=== PATIENT | female | born 1945 | race African-American/Black ===

== ENCOUNTER 2018-06-25 15:52 | Inpatient (IN) | payer MEDICARE, OTHER ==
[~2018-06-25] VITALS: Ht 165.1 cm; Wt 95.7 kg
--- NOTE | 2018-06-25 15:52 | NUR ---
PT [facility]AM[facility]X HANNA [facility] BILATERAL LEG CELLULITIS, PT IS AAOX4, NOT IN RESPIRATORY DISTRESS, HOOKED TO MONITOR, VS STABLE, KEPT RESTED AND COMFORTABLE, WILL CONTINUE TO MONITOR.
--- NOTE | 2018-06-25 16:06 | NUR ---
CALLED NURSE SUP FOR MED SURG BED
--- NOTE | 2018-06-25 16:20 | NUR ---
SEEN AND EXAMINED BY CHARLI LOWE
--- NOTE | 2018-06-25 16:26 | NUR ---
IV LINE ESTABLISHED, LABS DRAWNED AND SENT TO LAB.
[2018-06-25] MEDS ORDERED: ONDANSETRON HCL/PF 4 MG/2 ML VIAL ONE (16:29)
[2018-06-25] MEDS ORDERED: MORPHINE SULFATE INJ 4 MG/ML DISP.SYRIN ONE (16:30)
[2018-06-25] MEDS ORDERED: ONDANSETRON HCL/PF 4 MG/2 ML VIAL IVP ONE (16:30)
[2018-06-25] MEDS ORDERED: MORPHINE SULFATE INJ 2 MG/ML DISP.SYRIN IV ONE (16:30)
[2018-06-25 16:34] LABS: BASOPHILS # (AUTO) 0.1 /CMM (0.0-0.2); BASOPHILS % (AUTO) 1.2 % (0.0-2.0); EOSINOPHILS % (AUTO) 8.9 % (0.0-6.0); HEMATOCRIT 29 % (33-45); LYMPHOCYTES # (AUTO) 1.5 /CMM (0.8-4.8); LYMPHOCYTES % (AUTO) 21.4 % (20.0-44.0); MEAN CORPUSCULAR HGB CONC 31 g/dl (31.0-36.0); MEAN CORPUSCULAR VOLUME 83 fL (82-100); MONOCYTES # (AUTO) 0.6 /CMM (0.1-1.30); MONOCYTES % (AUTO) 8.5 % (2.0-12.0); NEUTROPHILS # (AUTO) 4.1 /CMM (1.8-8.9); PLATELET COUNT (AUTO) 425 /CMM (150-450); WHITE BLOOD COUNT (AUTO) 6.8 K/uL (4.3-11.0)
[2018-06-25 16:44] LABS: CALCIUM, SERUM 12.6 mg/dL (8.5-10.1); CARBON DIOXIDE 25 mmol/L (21-32); CHLORIDE 107 mmol/L (98-107); CREATININE 2.2 mg/dL (0.6-1.3); GLUCOSE 111 mg/dL (74-106); POTASSIUM 4.6 mmol/L (3.5-5.1); SODIUM SERUM 139 mmol/L (136-145); UREA NITROGEN, BLOOD 39 mg/dL (7-18)
[2018-06-25 16:51] LABS: ALANINE AMINOTRANSFERASE 12 U/L (12-78); ALBUMIN 2.2 g/dL (3.4-5.0); ALKALINE PHOSPHATASE 87 U/L (46-116); ASPARTATE AMINOTRANSFERASE 11 U/L (15-37); BILIRUBIN,DIRECT 0.1 mg/dL (0.0-0.2); BILIRUBIN,TOTAL 0.2 mg/dL (0.2-1.0); TOTAL PROTEIN, SERUM 8.2 g/dL (6.4-8.2)
[2018-06-25] MEDS ORDERED: LATA7.5D EACHEYE (17:43)
[2018-06-25] MEDS ORDERED: MAGN400O6 PO (17:43)
[2018-06-25] MEDS ORDERED: ASPI-1169 PO (17:43)
[2018-06-25] MEDS ORDERED: AMLO10TA7 PO (17:43)
[2018-06-25] MEDS ORDERED: ZINC220T PO (17:43)
[2018-06-25] MEDS ORDERED: HYDR-4384 PO ×2 (17:43)
[2018-06-25] MEDS ORDERED: SIMV10TA6 PO (17:43)
[2018-06-25] MEDS ORDERED: CARV3.12 PO (17:43)
[2018-06-25] MEDS ORDERED: ASCO-340 PO (17:43)
[2018-06-25] MEDS ORDERED: FERR325T23 PO (17:43)
[2018-06-25] MEDS ORDERED: AMIN30LI27 PO (17:43)
[2018-06-25] MEDS ORDERED: MIRT15TA7 PO (17:43)
[2018-06-25] MEDS ORDERED: BRIM5DRO3 EACHEYE (17:43)
[2018-06-25] MEDS ORDERED: ACET325T53 PO (17:43)
[2018-06-25] MEDS ORDERED: BISA10SU61 RC (17:43)
[2018-06-25] MEDS ORDERED: DORZ10DR EACHEYE (17:43)
[2018-06-25] MEDS ORDERED: NA P133E RC (17:43)
--- NOTE | 2018-06-25 17:46 | NUR ---
TALKED TO TAMEKA PERFORMING ARTS ROAD MANAGER.
[2018-06-25 18:14] LABS: APPEARANCE,URINE Cloudy (CLEAR); BILIRUBIN,URINE Negative (NEGATIVE); BLOOD, URINE Moderate Ery/uL (NEGATIVE); COLOR,URINE Yellow (YELLOW); KETONES,URINE Trace (NEGATIVE); LEUKOCYTE ESTERASE ,URINE Large (NEGATIVE); NITRITE, URINE Negative (NEGATIVE); PH,URINE 5.5 (5.0-8.0); PROTEIN,URINE 100 mg/dl (NEGATIVE); UGLUCOSE Negative (NEGATIVE); UROBILINOGEN,URINE 0.2 EU/dL (0.2)
--- NOTE | 2018-06-25 18:16 | NUR ---
CALLED NURSE SUP; ADV DR PARSONS REQUESTING TELE BED FOR 8; NURSE SUP STATED PT CAN STILL GO TO BED 103
[2018-06-25] MEDS ORDERED: VANCOMYCIN 1 GM in IV D5W 250 ML IV ONE (18:30)
[2018-06-25] MEDS ORDERED: PIPERACILLIN /TAZOBACTAM 3.375 G in IV D5W 50 ML IV ONE (18:30)
--- NOTE | 2018-06-25 18:52 | NUR ---
RN NOTE RECEIVED REPORT FROM ESMER SANTOYO.
[2018-06-25] MEDS ORDERED: FEE PK DOSING 1 MIN EA MC ONE (18:54)
[2018-06-25] MEDS ORDERED: ACETAMINOPHEN 325 MG TABLET PO PRN (19:00)
[2018-06-25] MEDS ORDERED: ONDANSETRON HCL/PF 4 MG/2 ML VIAL IVP PRN (19:00)
[2018-06-25] MEDS ORDERED: BISACODYL SUPP (10 MG) 10 MG/SUPP.RECT SUPP.RECT RC PRN (19:00)
[2018-06-25] MEDS ORDERED: MAG HYDROX/AL HYDROX/SIMETH 30 ML UDC PO PRN (19:00)
[2018-06-25] MEDS ORDERED: MAGNESIUM HYDROXIDE 30 ML UDC PO PRN ×2 (19:00)
--- NOTE | 2018-06-25 19:30 | NUR ---
ADMINISTRATION INTERNSHIPDIRECTOR OF SPECIAL SERVICES NOTE: PT ADMITTED FROM ER [facility]IA [facility] WITH ADMITTING DIAGNOSIS OF BLE WOUND WITH CELLULITIS. PT IS ALERT AND ORIENTED X3, VERBALLY RESPONSIVE. NO ACUTE DISTRESS NOTED. COMPLAINED OF BLE PAIN 8/10. ON ROOM AIR, NO SOB NOTED. SATURTAING WELL. ON TELE MONITOR SINUS RHYTHM HR 75BPM. PT HAS AN IV ON LEFT ANTECUBITAL #20 INTACT AND PATENT, FLUSHING WELL. NO SIGNS/SYMPTOMS OF INFILTRATION NOTED. PERTINENT ASSESSMENTS DONE. MULTIPLE SKIN ISSUES NOTED. PICTURES TAKEN AND PLACED ON CHART. CALL LIGHT PLACED WITHIN REACH. KEPT CLEAN, DRY AND COMFORTABLE. SAFETY AND FALL PRECAUTIONS OBSERVED AND MAINTAINED. WILL CONTINUE TO MONITOR PT.
[2018-06-25 20:00] VITALS: BP 103/69
[2018-06-25] MEDS: BRIMONIDINE TARTRATE OPHT SOLN 5 ML BOTTLE OP SCH (20:18)
[2018-06-25] MEDS: PROSTAT (PYXIS) 30 ML UDC PO SCH (20:19)
[2018-06-25] MEDS: LATANOPROST EYE DROP 0.005% 2.5 ML BOTTLE EACHEYE SCH (21:42)
[2018-06-25] MEDS: IV NS 0.9% 1,000 ML IV PRN (21:42)
[2018-06-25] MEDS: MIRTAZAPINE 15 MG TABLET PO SCH (21:47)
[2018-06-25] MEDS: HYDROCODONE/APAP 5/325MG 1 EACH TABLET PO PRN (21:47)
[2018-06-25] MEDS: SIMVASTATIN 10 MG TABLET PO SCH (21:47)
[2018-06-25 22:40] VITALS: BP 103/69
[2018-06-25] MEDS: CEFTRIAXONE 1 G in IV D5W 50 ML IV SCH (23:28)
[2018-06-26] VITALS (8 sets, daily range): BP systolic 102–133; BP diastolic 52–81
[2018-06-26 02:36] LABS: BACTERIA,URINE Many /HPF (None Seen); SQUAMOUS EPITHELIAL CELL,UR Few /HPF (None Seen); WBC,URINE 51-80 /HPF (0-3)
[2018-06-26] MEDS: BRIMONIDINE TARTRATE OPHT SOLN 5 ML BOTTLE OP SCH ×3 (04:10→20:50)
[2018-06-26 06:21] LABS: ALANINE AMINOTRANSFERASE 10 U/L (12-78); ALBUMIN 2.1 g/dL (3.4-5.0); ALKALINE PHOSPHATASE 87 U/L (46-116); ASPARTATE AMINOTRANSFERASE 11 U/L (15-37); BILIRUBIN,TOTAL 0.2 mg/dL (0.2-1.0); CARBON DIOXIDE 24 mmol/L (21-32); CHLORIDE 108 mmol/L (98-107); CREATININE 2.1 mg/dL (0.6-1.3); GLUCOSE 89 mg/dL (74-106); MAGNESIUM 1.9 mg/dL (1.8-2.4); PHOSPHORUS 2.6 mg/dL (2.5-4.9); POTASSIUM 4.6 mmol/L (3.5-5.1); SODIUM SERUM 141 mmol/L (136-145); TOTAL PROTEIN, SERUM 7.6 g/dL (6.4-8.2); UREA NITROGEN, BLOOD 40 mg/dL (7-18)
[2018-06-26 06:23] LABS: CHOLESTEROL 155 mg/dL (<200); HDL CHOLESTEROL 37 mg/dL (40-60); LDL 95 mg/dL (0-99); TRIGLYCERIDES 111 mg/dL (30-150)
[2018-06-26 06:27] LABS: BASOPHILS # (AUTO) 0.1 /CMM (0.0-0.2); BASOPHILS % (AUTO) 0.8 % (0.0-2.0); EOSINOPHILS % (AUTO) 9.7 % (0.0-6.0); HEMATOCRIT 26 % (33-45); HEMOGLOBIN 8.1 g/dL (11.5-14.8); LYMPHOCYTES # (AUTO) 1.6 /CMM (0.8-4.8); LYMPHOCYTES % (AUTO) 24.4 % (20.0-44.0); MEAN CORPUSCULAR HGB CONC 32 g/dl (31.0-36.0); MEAN CORPUSCULAR VOLUME 82 fL (82-100); MONOCYTES # (AUTO) 0.6 /CMM (0.1-1.30); MONOCYTES % (AUTO) 9.9 % (2.0-12.0); NEUTROPHILS # (AUTO) 3.6 /CMM (1.8-8.9); NEUTROPHILS % (AUTO) 55.2 % (43.0-81.0); PLATELET COUNT (AUTO) 392 /CMM (150-450); RED BLOOD CELL COUNT(AUTO) 3.14 MIL/uL (4.0-5.2); WHITE BLOOD COUNT (AUTO) 6.5 K/uL (4.3-11.0)
--- NOTE | 2018-06-26 06:35 | NUR ---
FILTER PLANT OPERATOR NOTE: NO CHANGES NOTED THROUGHOUT THE SHIFT. NO APPARENT DISTRESS NOTED. NO COMPLAINTS OF PAIN OR DISCOMFORT NOTED. ON ROOM AIR, BREATHING EVEN AND UNLABORED WITH NORMAL RESPIRATIONS. ON TELE MONITOR SINUS RHYTHM HR 76BPM. IV ON LEFT ANTECUBITAL #20 INTACT AND PATENT, IVF INFUSING WELL. KEPT CLEAN, DRY AND COMFORTABLE. SAFETY AND FALL PRECAUTIONS OBSERVED AND MAINTAINED. WILL ENDORSE TO DAY SHIFT RN FOR CONTINUITY OF CARE
[2018-06-26] MEDS ORDERED: ANESTHESIA TRAY IN PYXIS 1 EA TRAY MC ONE (06:53)
[2018-06-26] MEDS ORDERED: LIDOCAINE HCL/PF 1% 30 ML SDV ONE (06:53)
[2018-06-26] MEDS ORDERED: BUPIVACAINE 0.5 % PF 150 MG/30 ML VIAL ONE (06:53)
--- NOTE | 2018-06-26 07:31 | NUR ---
JAVA WEB ENGINEER OPENING RECEIVED REPORT FROM SIMBA RN. PT. IN OR AT THIS TIME
--- NOTE | 2018-06-26 07:36 | NUR ---
MAINTENANCE DATA ANALYST OPENING NOTES RECEIVED REPORT FROM NOC RN PATIENT IN OR FOR DEBRIDEMENT @ THIS TIME
--- NOTE | 2018-06-26 08:53 | NUR ---
RECEIVED POST DEBRIDEMENT CALL FROM KEISHA WEINBERG RN
[2018-06-26] MEDS: PROSTAT (PYXIS) 30 ML UDC PO SCH ×2 (09:00→17:00)
[2018-06-26] MEDS: DORZOLAMIDE OPTH 2% 10 ML BOTTLE EACHEYE SCH ×3 (09:00→18:22)
[2018-06-26] MEDS: AMLODIPINE BESYLATE 10 MG TABLET PO SCH (09:00)
[2018-06-26] MEDS: ZINC SULFATE 220 MG CAPSULE PO SCH (09:00)
[2018-06-26] MEDS: CARVEDILOL 3.125 MG TABLET PO SCH ×2 (09:00→18:21)
[2018-06-26] MEDS: ASPIRIN 81 MG TAB.CHEW PO SCH (09:00)
[2018-06-26] MEDS: FERROUS SULFATE (325 MG) 325 MG/TAB TABLET PO SCH (09:00)
--- NOTE | 2018-06-26 09:20 | NUR ---
PT. ARRIVED FROM OR. DROWSY BUT ABLE TO AROUSE. FOLLOWS COMMANDS. TEMP 97.9F, TELE ATTACHED SINUS RHYTHM HR 71, 102/77, SPO2 100% ON ROOM AIR, RR 16. ORDERS RECEIVED AND CARRIED OUT. WILL CONTINUE TO MONITOR
--- NOTE | 2018-06-26 10:54 | NUR ---
INFORMATION TECHNOLOGY TECHNICIAN NOTES ROUNDING DONE WITH DR DUMONT PATIENT [facility] STAY X1 MORE NIGHT FOR OBSERVATION
[2018-06-26] MEDS: IV NS 0.9% 1,000 ML IV PRN (14:39)
[2018-06-26] MEDS: Z GUARD REMEDY 2 OZ OINT TP PRN (16:31)
[2018-06-26] MEDS ORDERED: VANCOMYCIN 0.75 GM in IV D5W 250 ML IV SCH (18:00)
[2018-06-26] MEDS: NYSTATIN TOP POWDER 15 GM BOTTLE TP SCH ×3 (18:20→21:14)
[2018-06-26] MEDS: HYDROCODONE/APAP 5/325MG 1 EACH TABLET PO PRN ×2 (18:21→23:19)
--- NOTE | 2018-06-26 19:51 | NUR ---
ESMER MS INITIAL NOTE: PT IS ALERT AND ORIENTED X3, VERBALLY RESPONSIVE. NO ACUTE DISTRESS NOTED. DENIES ANY PAIN, ON R/A SATURATING WELL. PT HAS AN IV ON LEFT ANTECUBITAL #20 INTACT AND PATENT, FLUSHING WELL. NO SIGNS/SYMPTOMS OF INFILTRATION NOTED. PERTINENT ASSESSMENTS DONE. MULTIPLE SKIN ISSUES NOTED, SCHEDULED FOR DEBRIDEMENT IN AM, CONSENT IN CHART. CALL LIGHT PLACED WITHIN REACH. KEPT CLEAN, DRY AND COMFORTABLE. Addendum: 06/26/18 at 2006 by LISSY TATUM RN S/P WOUND DEBRIDEMENT, NO COMPLICATIONS NOTED, OR BLEEDING, VS STABLE, AFEBRILE.
[2018-06-26] MEDS: NYSTATIN/TRIAMCIN CREAM 15 GM TUBE TP SCH (20:00)
[2018-06-26] MEDS: LATANOPROST EYE DROP 0.005% 2.5 ML BOTTLE EACHEYE SCH (21:03)
[2018-06-26] MEDS: SIMVASTATIN 10 MG TABLET PO SCH (21:04)
[2018-06-26] MEDS: MIRTAZAPINE 15 MG TABLET PO SCH (21:04)
--- NOTE | 2018-06-26 21:16 | NUR ---
NYSTATIN OINT' TUBE NOT IN CASET.
[2018-06-26] MEDS: CEFTRIAXONE 1 G in IV D5W 50 ML IV SCH (23:03)
[2018-06-26] MEDS: ZOLPIDEM TARTRATE 5 MG TABLET PO PRN (23:20)
[2018-06-27] VITALS: BP 126/71
[2018-06-27 04:00] VITALS: BP 116/53
[2018-06-27] MEDS: BRIMONIDINE TARTRATE OPHT SOLN 5 ML BOTTLE OP SCH ×3 (04:30→19:23)
[2018-06-27] MEDS: IV NS 0.9% 1,000 ML IV PRN ×2 (04:31→19:22)
--- NOTE | 2018-06-27 06:14 | NUR ---
CLOTH WIRE WEAVER CLOSING NOTE: PT IS ALERT AND ORIENTED X3, VERBALLY RESPONSIVE. NO ACUTE DISTRESS NOTED. DENIES ANY PAIN, ON R/A SATURATING WELL. PT HAS AN IV ON LEFT ANTECUBITAL #20 INTACT AND PATENT, FLUSHING WELL. NO SIGNS/SYMPTOMS OF INFILTRATION NOTED. PERTINENT , S/P DEBRIDEMENT , CALL LIGHT PLACED WITHIN REACH. KEPT CLEAN, DRY AND COMFORTABLE.
[2018-06-27 06:28] LABS: BASOPHILS % (AUTO) 0.7 % (0.0-2.0); EOSINOPHILS % (AUTO) 8.9 % (0.0-6.0); HEMATOCRIT 25 % (33-45); LYMPHOCYTES # (AUTO) 2.2 /CMM (0.8-4.8); LYMPHOCYTES % (AUTO) 33.3 % (20.0-44.0); MEAN CORPUSCULAR HGB CONC 32 g/dl (31.0-36.0); MEAN CORPUSCULAR VOLUME 82 fL (82-100); MONOCYTES # (AUTO) 0.8 /CMM (0.1-1.30); MONOCYTES % (AUTO) 11.8 % (2.0-12.0); NEUTROPHILS % (AUTO) 45.3 % (43.0-81.0); PLATELET COUNT (AUTO) 308 /CMM (150-450); RED BLOOD CELL COUNT(AUTO) 3.03 MIL/uL (4.0-5.2); WHITE BLOOD COUNT (AUTO) 6.5 K/uL (4.3-11.0)
[2018-06-27 06:54] LABS: ALANINE AMINOTRANSFERASE 8 U/L (12-78); ALBUMIN 1.8 g/dL (3.4-5.0); ALKALINE PHOSPHATASE 74 U/L (46-116); ASPARTATE AMINOTRANSFERASE 14 U/L (15-37); BILIRUBIN,TOTAL 0.1 mg/dL (0.2-1.0); CALCIUM, SERUM 10.8 mg/dL (8.5-10.1); CARBON DIOXIDE 23 mmol/L (21-32); CHLORIDE 111 mmol/L (98-107); CREATININE 1.5 mg/dL (0.6-1.3); GLUCOSE 82 mg/dL (74-106); MAGNESIUM 1.9 mg/dL (1.8-2.4); PHOSPHORUS 2.3 mg/dL (2.5-4.9); POTASSIUM 4.6 mmol/L (3.5-5.1); SODIUM SERUM 142 mmol/L (136-145); TOTAL PROTEIN, SERUM 6.8 g/dL (6.4-8.2); UREA NITROGEN, BLOOD 31 mg/dL (7-18)
[2018-06-27 06:55] LABS: IRON, SERUM 16 ug/dl (50-175); TOTAL IRON BINDING CAPACITY 109 ug/dl (250-450)
--- NOTE | 2018-06-27 07:30 | NUR ---
RN NOTES RECEIVED PATIENT IN BED, AWAKE, ALERT AND ORIENTED X3, ABLE TO RESPOND APPROPRIATELY. NOT ON ANY FORM OF DISTRESS. N ROOM AIR, NO SOB NOTED. WITH COMPLAINTS OF PAIN ON THE LLE PAIN 10/10. SINUS RHYTHM ON THE MONITOR, HR ON THE 70 BPM. IV ACCESS ON LEFT ANTECUBITAL #20 INTACT AND PATENT, FLUSHING WELL. NO SIGNS/SYMPTOMS OF INFILTRATION NOTED.WITH ONGOING UV OF NS AT 75CC/HR. SAFETY MEASURES OBSERVED AND MAINTAINED. ENCOURAGED TO CALL FOR HELP AND ASSISTANCE. CALL LIGHT PLACED WITHIN REACH. WILL CONTINUE TO MONITOR PATIENT.
[2018-06-27 08:00] VITALS: BP 122/69
[2018-06-27] MEDS: NYSTATIN/TRIAMCIN CREAM 15 GM TUBE TP SCH ×2 (08:17→20:27)
[2018-06-27] MEDS: ASPIRIN 81 MG TAB.CHEW PO SCH (08:17)
[2018-06-27] MEDS: CARVEDILOL 3.125 MG TABLET PO SCH ×2 (08:18→17:27)
[2018-06-27] MEDS: AMLODIPINE BESYLATE 10 MG TABLET PO SCH (08:18)
[2018-06-27] MEDS: FERROUS SULFATE (325 MG) 325 MG/TAB TABLET PO SCH (08:18)
[2018-06-27] MEDS: PROSTAT (PYXIS) 30 ML UDC PO SCH ×2 (08:27→17:33)
[2018-06-27] MEDS: ZINC SULFATE 220 MG CAPSULE PO SCH (08:27)
[2018-06-27] MEDS: DORZOLAMIDE OPTH 2% 10 ML BOTTLE EACHEYE SCH ×3 (08:28→17:26)
[2018-06-27 08:29] LABS: EOSINOPHILS % (MANUAL) 7 % (0-4); LYMPHOCYTES % (MANUAL) 43 % (16-48); MONOCYTES % (MANUAL) 7 % (0-11.0); NEUTROPHILS % (MANUAL) 43 (42-76)
[2018-06-27] MEDS: HYDROCODONE/APAP 5/325MG 1 EACH TABLET PO PRN ×3 (08:29→21:43)
--- NOTE | 2018-06-27 08:41 | NUR ---
WOUND CARE CONSULT WOUND CARE RECEIVED CONSULT FOR BLE WOUNDS. WOUND CARE WILL DEFER CONSULT AND TREATMENT PLANS TO PLASTIC SURGICAL TEAM WELL DPM DR DILLARD WHO ARE ALL FOLLOWING THIS PATIENT. PATIENT WITH JOSUE AT 12, ALL PRESSURE ULCER PREVENTION MEASURES ARE NOTED TO BE IN PLACE AT THIS TIME. WILL SEE PRN.
--- NOTE | 2018-06-27 08:54 | NUR ---
WOUND CARE CONSULT: PT FOLLOWED BY PLASTIC SURGERY AND PODIATRY TEAM. DEFER TO SURGICAL TEAMS FOR WOUND TREATMENT PLAN. RECOMMEND FIRST STEP LOW AIRLOSS MATTRESS FOR CURRENT JOSUE SCORE OF 12. DISCUSSED WITH NURSING STAFF AND FOREST TECHNOLOGY PROFESSOR. IN AGREEMENT WITH PLAN OF CARE.
[2018-06-27 09:18] LABS: CREATINE KINASE, TOTAL 70 U/L (26-192); FERRITIN 147 ng/mL (8-388)
[2018-06-27 12:00] VITALS: BP 129/63
[2018-06-27] MEDS ORDERED: K PHOS NEUTRAL 250 MG TABLET PO ONE (12:00)
[2018-06-27 16:00] VITALS: BP 121/63
[2018-06-27] MEDS: LACTOBACILLUS RHAMNOSUS GG 1 EACH CAP.SPRINK PO SCH (17:28)
--- NOTE | 2018-06-27 17:30 | NUR ---
RN NOTES ENDORSED PATIENT FOR CONTINUITY OF CARE. NO ACUTE CHANGES WITHIN THE SHIFT. NOT ON ANY FORM OF DISTRESS. ALL NURSING NEEDS ATTENDED AND MET. SAFETY MEASURES IN PLACE AT ALL TIMES. CALL LIGHT WITHIN REACH
--- NOTE | 2018-06-27 19:20 | NUR ---
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 Addendum: 06/27/18 at 7 by SADIE LACY RN MAKE CORRECTION: GAUGE #2O IV CANNULA ON LAC.
[2018-06-27 20:00] VITALS: BP 130/68
[2018-06-27] MEDS: VANCOMYCIN 1 GM in IV D5W 250 ML IV SCH (20:18)
[2018-06-27] MEDS: LATANOPROST EYE DROP 0.005% 2.5 ML BOTTLE EACHEYE SCH (21:28)
[2018-06-27] MEDS: MUPIROCIN OINT 2% 22 GM TUBE SCH (21:28)
[2018-06-27] MEDS: MIRTAZAPINE 15 MG TABLET PO SCH (21:28)
[2018-06-27] MEDS: SIMVASTATIN 10 MG TABLET PO SCH (21:28)
--- NOTE | 2018-06-27 21:44 | NUR ---
RN NOTES: TURNING AND REPOSITIONING DONE, AFTER THAT SHE COMPLAINED OF PAIN GENERALIZED 09/03, REQUEST FOR PRN PAIN MEDICATION, GIVEN, NON PHARMACOLOGIC INTERVENTION RENDERED.DIM LIGHT AND WARM BLANKET GIVEN.CALL LIGHT KEPT WITHIN EASY REACH.
[2018-06-27] MEDS: CEFTRIAXONE 1 G in IV D5W 50 ML IV SCH (22:06)
[2018-06-28] VITALS: BP 125/65
[2018-06-28] MEDS: HYDROCODONE/APAP 5/325MG 1 EACH TABLET PO PRN ×4 (01:44→21:09)
--- NOTE | 2018-06-28 01:45 | NUR ---
RN NOTES: TURN AND REPOSITIONED, COMPLAINED OF BLE PAIN 09/03, REQUEST FOR PAIN MEDICATION AFTER SHE HAD HER SNACKS,NON PHARMACOLOGIC INTERVENTION RENDERED.
[2018-06-28] MEDS: BRIMONIDINE TARTRATE OPHT SOLN 5 ML BOTTLE OP SCH ×3 (02:51→18:12)
[2018-06-28] MEDS: ACETAMINOPHEN 325 MG TABLET PO PRN (02:59)
--- NOTE | 2018-06-28 03:00 | NUR ---
RN NOTES: ABLE TO SLEEP AT SHORT INTERVALS, UPON AWAKENING SHE REQUEST FOR HER TYLENOL, EXPLAINED TO SHE JUST RECEIVED HER NORCO AT 0144, SHE SAID 'IM STILL IN PAIN,CAN YOU PLEASE GIVE ME TYLENOL", GIVEN PER PATIENT REQUEST, NON PHARMACOLOGIC INTERVENTION RENDERED. CALL LIGHT KEPT WITHIN EASY REACH.
[2018-06-28] MEDS: NYSTATIN TOP POWDER 15 GM BOTTLE TP SCH ×2 (05:21→17:08)
--- NOTE | 2018-06-28 06:30 | NUR ---
RN NOTES: ABLE TO SLEEP AND REST, MORNING CARE DONE,IVF ONGOING, BLE OFF LOADING,NO SIGN OF SOB OR RESPIRATORY DISCOMFORT,KEPT ON CLOSE WATCH, BLOOD TEST DONE,FOR PAIN MANAGEMENT,ENDORSED FOR CONTINUITY OF CARE.
[2018-06-28 07:31] LABS: CALCIUM, SERUM 10.5 mg/dL (8.5-10.1); CARBON DIOXIDE 22 mmol/L (21-32); CHLORIDE 111 mmol/L (98-107); CREATININE 1.1 mg/dL (0.6-1.3); GLUCOSE 91 mg/dL (74-106); PHOSPHORUS 2.5 mg/dL (2.5-4.9); SODIUM SERUM 141 mmol/L (136-145); UREA NITROGEN, BLOOD 24 mg/dL (7-18)
--- NOTE | 2018-06-28 07:31 | NUR ---
MS RN OPENING NOTES RECEIVED PT LAYING IN BED WITH HOB SLIGHTLY ELEVATED. PT IS A/O X3, AFEBRILE. RESPIRATIONS ARE EVEN AND UNLABORED, NOT IN ANY ACUTE DISTRESS NOTED.C/O GENERALIZED PAIN W/ PL 10/04. WILL MEDICATE ACCORDINGLY. DENIES ANY SOB, N/V. IV SITE TO LAC INTACT, NO INFILTRATION NOTED. DRESSING KEPT CLEAN AND DRY. SAFETY MEASURES ARE IN PLACE. INSTRUCTED PT TO USE CALL LIGHT WHEN ASSISTANCE IS NEEDED, CALL LIGHT IS LEFT WITHIN REACH. WILL MONITOR THROUGHOUT SHIFT FOR CONTINUITY OF CARE.
[2018-06-28 08:00] VITALS: BP_SYST 147; BP_DIAS 60; BP_DIAS 65
[2018-06-28] MEDS: LACTOBACILLUS RHAMNOSUS GG 1 EACH CAP.SPRINK PO SCH ×2 (08:12→17:03)
[2018-06-28] MEDS: AMLODIPINE BESYLATE 10 MG TABLET PO SCH (08:13)
[2018-06-28] MEDS: FERROUS SULFATE (325 MG) 325 MG/TAB TABLET PO SCH (08:13)
[2018-06-28] MEDS: ZINC SULFATE 220 MG CAPSULE PO SCH (08:13)
[2018-06-28] MEDS: ASPIRIN 81 MG TAB.CHEW PO SCH (08:13)
[2018-06-28] MEDS: CARVEDILOL 3.125 MG TABLET PO SCH ×2 (08:14→17:03)
[2018-06-28] MEDS: NYSTATIN/TRIAMCIN CREAM 15 GM TUBE TP SCH ×2 (08:20→21:14)
[2018-06-28] MEDS: MUPIROCIN OINT 2% 22 GM TUBE SCH ×2 (08:20→21:13)
[2018-06-28] MEDS: DORZOLAMIDE OPTH 2% 10 ML BOTTLE EACHEYE SCH ×3 (08:21→17:08)
[2018-06-28] MEDS: PROSOURCE / PROSTAT (PYXIS) 30 ML UDC PO SCH (09:03)
--- NOTE | 2018-06-28 13:31 | NUR ---
MS RN NOTES-- PT ABLE TO MAKE NEEDS KNOWN. NEEDS MET AND ANTICIPATED. PT NOT IN ANY ACUTE DISTRESS NOTED. WILL CONTINUE TO MONITOR.
[2018-06-28 16:00] VITALS: BP 111/63
[2018-06-28] MEDS: IV NS 0.9% 1,000 ML IV PRN (17:06)
--- NOTE | 2018-06-28 18:21 | NUR ---
MS RN CLOSING NOTE ALL DUE MEDS GIVEN, NEEDS MET AND RENDERED. PT REMAINS A/O X3, AFEBRILE. RESPIRATIONS ARE EVEN AND UNLABORED, NOT IN ANY ACUTE DISTRESS NOTED. PT MEDICATED FOR PAIN 1704 NORCO 5/325, NOTED TO BE EFFECTIVE. DENIES ANY SOB, N/V. IV SITE TO LAC INTACT, NO INFILTRATION NOTED. DRESSING KEPT CLEAN AND DRY. REPOSITIONED Q2H. SAFETY MEASURES ARE IN PLACE. REMINDED PT TO USE CALL LIGHT WHEN ASSISTANCE IS NEEDED, CALL LIGHT IS LEFT WITHIN REACH. WILL ENDORSE TO NEXT SHIFT FOR CONTINUITY OF CARE.
--- NOTE | 2018-06-28 19:20 | NUR ---
CHANGE OF SHIFT REPORT Patient in bed, awake. Patient is legally blind. Irritable behavior. Stable oxygen saturation on RA denies shortness of breath. IVF infusing. BLE dressing C/D/I denies pain. Instruction to use call light for assistance, verbalized understanding.
[2018-06-28 20:00] VITALS: BP 151/73
[2018-06-28] MEDS: VANCOMYCIN 1 GM in IV D5W 250 ML IV SCH (20:26)
[2018-06-28 21:07] LABS: PTH, INTACT 110 pg/mL (15-65)
[2018-06-28] MEDS: MIRTAZAPINE 15 MG TABLET PO SCH (21:08)
[2018-06-28] MEDS: SIMVASTATIN 10 MG TABLET PO SCH (21:08)
[2018-06-28] MEDS: LATANOPROST EYE DROP 0.005% 2.5 ML BOTTLE EACHEYE SCH (21:14)
[2018-06-28] MEDS: CEFTRIAXONE 1 G in IV D5W 50 ML IV SCH (22:02)
[2018-06-28] MEDS: ZOLPIDEM TARTRATE 5 MG TABLET PO PRN (22:32)
[2018-06-29] MEDS: BRIMONIDINE TARTRATE OPHT SOLN 5 ML BOTTLE OP SCH ×3 (03:00→20:16)
[2018-06-29 04:04] VITALS: BP 131/47
[2018-06-29] MEDS: HYDROCODONE/APAP 5/325MG 1 EACH TABLET PO PRN ×2 (05:33→22:07)
[2018-06-29] MEDS: NYSTATIN/TRIAMCIN CREAM 15 GM TUBE TP SCH ×3 (05:37→20:03)
[2018-06-29] MEDS: Z GUARD REMEDY 2 OZ OINT TP PRN (05:37)
[2018-06-29] MEDS: NYSTATIN TOP POWDER 15 GM BOTTLE TP SCH ×2 (05:39→16:53)
--- NOTE | 2018-06-29 06:32 | NUR ---
END OF SHIFT REPORT. Patient in bed, stable oxygen saturation on RA denies shortness breath. IVF infusing, maintained at 75 ml/hr. On IV antibiotic as scheduled. BLE wound dressing C/D/I, given PRN [place] for leg/back pain with relief. Bed bound, maintained safety. Repositioned every 2 hours. Contact precaution, PPE utilized.
[2018-06-29 06:38] LABS: CALCIUM, SERUM 10.9 mg/dL (8.5-10.1); CARBON DIOXIDE 21 mmol/L (21-32); CHLORIDE 112 mmol/L (98-107); CREATININE 0.9 mg/dL (0.6-1.3); GLUCOSE 85 mg/dL (74-106); POTASSIUM 4.1 mmol/L (3.5-5.1); SODIUM SERUM 144 mmol/L (136-145); UREA NITROGEN, BLOOD 15 mg/dL (7-18)
[2018-06-29 08:00] VITALS: BP_SYST 122; BP_SYST 135; BP_DIAS 53; BP_DIAS 65
[2018-06-29] MEDS: ZINC SULFATE 220 MG CAPSULE PO SCH (09:00)
[2018-06-29] MEDS: LACTOBACILLUS RHAMNOSUS GG 1 EACH CAP.SPRINK PO SCH ×2 (09:00→17:00)
[2018-06-29] MEDS: FERROUS SULFATE (325 MG) 325 MG/TAB TABLET PO SCH (09:00)
[2018-06-29] MEDS: CARVEDILOL 3.125 MG TABLET PO SCH ×2 (09:00→16:53)
[2018-06-29] MEDS: AMLODIPINE BESYLATE 10 MG TABLET PO SCH (09:00)
[2018-06-29] MEDS: ASPIRIN 81 MG TAB.CHEW PO SCH (09:00)
[2018-06-29] MEDS: MUPIROCIN OINT 2% 22 GM TUBE SCH ×2 (09:02→20:04)
[2018-06-29] MEDS: DORZOLAMIDE OPTH 2% 10 ML BOTTLE EACHEYE SCH ×3 (09:02→16:53)
[2018-06-29] MEDS: PROSOURCE / PROSTAT (PYXIS) 30 ML UDC PO SCH (09:03)
[2018-06-29 16:00] VITALS: BP_SYST 134; BP_SYST 158; BP_DIAS 55; BP_DIAS 83
--- NOTE | 2018-06-29 19:25 | NUR ---
MS RN OPENING NOTES: RECEIVED PT ON ROOM AIR AND IS TOLERATING WELL. PT SITTING UP AND IS SITTING UP IN BED AT THIS TIME. PT AROUSABLE TO NAME AND TOUCH. PT HAS IV ON L AC #20G AND IS PATENT AND INTACT. PT TO BE CONNECTED TO IV FLUIDS AT 75ML/HR. BED KEPT IN LOW, LOCKED POSITION, AND SIDE RAILS X 2UP. WILL CONTINUE TO MONITOR PT.
[2018-06-29 20:00] VITALS: BP 160/68
[2018-06-29] MEDS: IV NS 0.9% 1,000 ML IV PRN (20:01)
[2018-06-29] MEDS: VANCOMYCIN 1 GM in IV D5W 250 ML IV SCH (20:14)
[2018-06-29] MEDS: MIRTAZAPINE 15 MG TABLET PO SCH (21:20)
[2018-06-29] MEDS: SIMVASTATIN 10 MG TABLET PO SCH (21:20)
[2018-06-29] MEDS: LATANOPROST EYE DROP 0.005% 2.5 ML BOTTLE EACHEYE SCH (21:21)
[2018-06-29] MEDS: CEFTRIAXONE 1 G in IV D5W 50 ML IV SCH (22:00)
--- NOTE | 2018-06-29 22:10 | NUR ---
MS RN NOTES: PT COMPLAINING OF BILATERAL LOWER EXT 7/10 PAIN. PT WAS ADMINISTERED NORCO 5 PO. WILL CONTINUE TO MONITOR.
--- NOTE | 2018-06-30 00:47 | NUR ---
MS RN NOTES: NOTICED IN 12HR CHECK AND BROUGHT IT UP TO CHARGE NURSE, JEANIE LYMAN, ATTENTION THAT WRITTEN ORDER SAYS "PLEASE CONSULT PAIN MGMT: DR. QURESHI" PT IN ORDER FOR DR Marilee QURESHI FOR PAIN MGMT CONSULT .
[2018-06-30] MEDS: BRIMONIDINE TARTRATE OPHT SOLN 5 ML BOTTLE OP SCH ×3 (02:15→18:14)
[2018-06-30] MEDS: HYDROCODONE/APAP 5/325MG 1 EACH TABLET PO PRN ×3 (02:21→18:49)
--- NOTE | 2018-06-30 02:24 | NUR ---
MS RN NOTES: PT COMPLAINING OF 10/10 BILATERAL LOWER EXTREMITY PAIN. PT WAS ADMINISTERED NORCO 5 PO. WILL CONTINUE TO MONITOR.
[2018-06-30 04:00] VITALS: BP 136/56
[2018-06-30] MEDS: ACETAMINOPHEN 325 MG TABLET PO PRN ×3 (04:16→21:31)
--- NOTE | 2018-06-30 04:19 | NUR ---
MS RN NOTES: PT IS COMPLAINING OF L FOOT AND IS REQUESTING FOR PAIN MEDICATIONS. INFORMED HER THAT SHE RECEIVED NORCO 5 PO ABOUT 2 HOURS AGO BUT PT STILL REQUESTING FOR PAIN MEDS. PT WAS ADMINISTERED TYLENOL 650MG PO. WILL CONTINUE TO MONITOR PT.
[2018-06-30] MEDS: NYSTATIN TOP POWDER 15 GM BOTTLE TP SCH ×2 (04:54→17:28)
--- NOTE | 2018-06-30 06:30 | NUR ---
MS LYMAN CLOSING NOTES: ALL NEEDS WERE ATTENDED AND ANTICIPATED FOR. PT KEPT CLEAN, DRY, AND COMFORTABLE. PT TURNED AND REPOSITIONED Q 2HRS. PT'S IV REMAINS INTACT AND IS BEING INFUSED WITH IV NS AT 75ML/HR. WOUND TX PERFORMED ORDERED. HEELS OFFLOADED AND BILATERAL LOWER EXTREMITIES KEPT CLEAN AN DRY. BED KEPT IN LOW, LOCKED POSITION, AND SIDE RAILS X 2UP. WILL ENDORSE TO AM NURSE FOR POLA. Addendum: 06/30/18 at 0639 by FAITH MAXWELL RN BILATERAL LOWER EXTREMITIES DRESSING KEPT CLEAN AND DRY. DR. DILLARD TO CHANGE DRESSING.
[2018-06-30 06:58] LABS: CALCIUM, SERUM 10.8 mg/dL (8.5-10.1); CARBON DIOXIDE 24 mmol/L (21-32); CHLORIDE 113 mmol/L (98-107); GLUCOSE 88 mg/dL (74-106); SODIUM SERUM 145 mmol/L (136-145); UREA NITROGEN, BLOOD 13 mg/dL (7-18)
--- NOTE | 2018-06-30 07:05 | NUR ---
MS RN OPENING NOTES RECEIVED PT LYING ON BED.ALERT/ORIENTED X2.ON ROOM AIR,TOLERATING WELL.NO PAIN NOTED FOR NOW.IV LINE IS ON LEFT AC G20,IV SITE IS CLEAN,DRY AND INTACT.NO INFILTRATION NOTED.SAFETY IS MAINTAINED AT ALL TIMES.BED IS IN LOW POSITION AND LOCKED,CALL LIGHT IS WITHIN REACH. WILL CONTINUE TO MONITOR THE PT CLOSELY.
[2018-06-30 08:00] VITALS: BP 138/66
[2018-06-30] MEDS: FERROUS SULFATE (325 MG) 325 MG/TAB TABLET PO SCH (08:36)
[2018-06-30] MEDS: CARVEDILOL 3.125 MG TABLET PO SCH ×2 (08:37→16:45)
[2018-06-30] MEDS: AMLODIPINE BESYLATE 10 MG TABLET PO SCH (08:37)
[2018-06-30] MEDS: LACTOBACILLUS RHAMNOSUS GG 1 EACH CAP.SPRINK PO SCH ×2 (08:37→16:45)
[2018-06-30] MEDS: ZINC SULFATE 220 MG CAPSULE PO SCH (08:37)
[2018-06-30] MEDS: ASPIRIN 81 MG TAB.CHEW PO SCH (08:37)
[2018-06-30] MEDS: DORZOLAMIDE OPTH 2% 10 ML BOTTLE EACHEYE SCH ×3 (08:43→17:28)
[2018-06-30] MEDS: PROSOURCE / PROSTAT (PYXIS) 30 ML UDC PO SCH (08:44)
[2018-06-30] MEDS: NYSTATIN/TRIAMCIN CREAM 15 GM TUBE TP SCH ×2 (08:44→20:28)
[2018-06-30] MEDS: MUPIROCIN OINT 2% 22 GM TUBE SCH ×2 (08:44→20:27)
[2018-06-30 11:10] LABS: *SPE A/G RATIO 0.5 (0.7-1.7); *SPE ALBUMIN 2.4 g/dL (2.9-4.4); *SPE ALPHA-1-GLOBULIN 0.4 g/dL (0.0-0.4); *SPE BETA GLOBULIN 1.1 g/dL (0.7-1.3); *SPE GLOBULIN, TOTAL 4.9 g/dL (2.2-3.9); *SPE M-SPIKE Not Observed g/dL (Not Observed); *SPEGAMMA GLOBULIN 2.4 g/dL (0.4-1.8)
[2018-06-30] MEDS: IV NS 0.9% 1,000 ML IV PRN (12:07)
[2018-06-30] MEDS ORDERED: MORPHINE SULFATE INJ 4 MG/ML DISP.SYRIN IV ONE (13:00)
[2018-06-30] MEDS ORDERED: LORAZEPAM INJ 2 MG/ML VIAL IV ONE (13:00)
--- NOTE | 2018-06-30 13:30 | NUR ---
MS RN NOTES ,DIRECTOR OF INVESTIGATIONS SEEN AND EXAMINED THE WOUND OF BLE,CHANGED THE DRESSING AFTER GIVING IV MORPHINE 4MG AND ATIVAN IV 1MG ONCE.PT TOLERATED WELL. Addendum: 06/30/18 at 1921 by LUDIN WILBURN RN ORDERED TO CHANGE THE DRESSING ON BLE NEXT WEEK.NEW ORDERS NOTED ND CARRIED OUT.
[2018-06-30] MEDS ORDERED: CALCITONIN,SALMON INJ 400 UNITS/2 ML VIAL SQ SCH (15:30)
[2018-06-30 16:00] VITALS: BP 133/74
[2018-06-30] MEDS: CALCITONIN,SALMON,SYNTHETIC 3.7 ML SPRAY.PUMP NS SCH (18:14)
--- NOTE | 2018-06-30 18:32 | NUR ---
MS RN CLOSING NOTES PT IS LYING ON BED.ALERT/ORIENTED X3.ON ROOM AIR,TOLERATING WELL.CONTINUE WITH PAIN MEDICATIONS.PT IS CLEAN AND DRY.IV LINE IS ON LEFT AC G20,IV SITE IS CLEAN,DRY AND INTACT.NO INFILTRATION NOTED.ALL DUE MEDS ARE GIVEN.NO SIGNIFICANT CHANGES NOTED IN THE SHIFT.ENDORSED TO MERCHANDISE PRESENTATION MANAGER RN FOR POLA.
[2018-06-30 20:00] VITALS: BP 114/65
--- NOTE | 2018-06-30 20:05 | NUR ---
RN OPENING NOTES RECEIVED REPORT FROM LUDIN RN. PATIENT A/A/O X2-3, ABLE TO MAKE NEEDS KNOWN. UPON ASSESSMENT PATIENT UNABLE TO SEE IN BOTH EYES. BREATHING EVEN & UNLABORED, TOLERATING ROOM AIR. DENIES ANY SOB OR DIFFICULTY BREATHING. RADIAL PULSES PRESENT. LEFT AC IV #20 INTACT & PATENT W/ DRESSING CDI & IVF NS INFUSING WELL @ 75 ML/HR. C/O LEFT FOOT PAIN 10/10, PAIN MED TO BE GIVEN. SAFETY MEASURES IN PLACE W/ SIDE RAILS UP & BED ALARM ON. INSTRUCTED TO USE CALL LIGHT FOR ASSISTANCE. WILL CONTINUE TO MONITOR.
[2018-06-30] MEDS: VANCOMYCIN 1 GM in IV D5W 250 ML IV SCH (20:24)
[2018-06-30] MEDS: SIMVASTATIN 10 MG TABLET PO SCH (21:30)
[2018-06-30] MEDS: MIRTAZAPINE 15 MG TABLET PO SCH (21:31)
[2018-06-30] MEDS: LATANOPROST EYE DROP 0.005% 2.5 ML BOTTLE EACHEYE SCH (21:33)
[2018-06-30] MEDS: CEFTRIAXONE 1 G in IV D5W 50 ML IV SCH (22:51)
--- NOTE | 2018-07-01 01:29 | NUR ---
MS RN NOTES Assume care of this patient. Will continue to monitor accordingly.
[2018-07-01] MEDS: IV NS 0.9% 1,000 ML IV PRN (03:02)
[2018-07-01] MEDS: BRIMONIDINE TARTRATE OPHT SOLN 5 ML BOTTLE OP SCH ×3 (03:06→18:11)
[2018-07-01] MEDS: HYDROCODONE/APAP 5/325MG 1 EACH TABLET PO PRN ×2 (04:50→16:38)
[2018-07-01] MEDS: NYSTATIN TOP POWDER 15 GM BOTTLE TP SCH ×2 (04:53→16:39)
--- NOTE | 2018-07-01 06:35 | NUR ---
MS RN CLOSING NOTES Patient asleep at this time. With patent peripheral IV line LAC G#20 with NS infusing well @ 75ml/hr as ordered. No new unusualities noted. All nursing needs attended. Medicated for pain, noted effective. Kept clean, dry and comfortable.Kept bed low and locked, siderails up, call light within easy reach. Endorsed to the next shift.
[2018-07-01 06:51] LABS: BASOPHILS % (AUTO) 0.7 % (0.0-2.0); EOSINOPHILS % (AUTO) 12.9 % (0.0-6.0); HEMATOCRIT 25 % (33-45); HEMOGLOBIN 7.8 g/dL (11.5-14.8); LYMPHOCYTES # (AUTO) 1.7 /CMM (0.8-4.8); MEAN CORPUSCULAR HGB CONC 31 g/dl (31.0-36.0); MEAN CORPUSCULAR VOLUME 82 fL (82-100); MONOCYTES # (AUTO) 0.5 /CMM (0.1-1.30); MONOCYTES % (AUTO) 9.7 % (2.0-12.0); NEUTROPHILS # (AUTO) 2.4 /CMM (1.8-8.9); NEUTROPHILS % (AUTO) 44.7 % (43.0-81.0); PLATELET COUNT (AUTO) 359 /CMM (150-450); RED BLOOD CELL COUNT(AUTO) 3.06 MIL/uL (4.0-5.2); WHITE BLOOD COUNT (AUTO) 5.3 K/uL (4.3-11.0)
--- NOTE | 2018-07-01 07:05 | NUR ---
MS RN OPENING NOTES RECEIVED PT LYING ON BED.ALERT/ORIENTED X2.ON ROOM AIR,TOLERATING WELL.NO PAIN NOTED FOR NOW.IV LINE IS ON LEFT AC G20 WITH IV FLUIDS RUNNING,IV SITE IS CLEAN,DRY AND INTACT.NO INFILTRATION NOTED.SAFETY IS MAINTAINED AT ALL TIMES.BED IS IN LOW POSITION AND LOCKED,CALL LIGHT IS WITHIN REACH. WILL CONTINUE TO MONITOR THE PT CLOSELY
[2018-07-01 07:14] LABS: ALANINE AMINOTRANSFERASE 8 U/L (12-78); ALBUMIN 1.8 g/dL (3.4-5.0); ALKALINE PHOSPHATASE 65 U/L (46-116); ASPARTATE AMINOTRANSFERASE 12 U/L (15-37); BILIRUBIN,TOTAL 0.1 mg/dL (0.2-1.0); CALCIUM, SERUM 10.8 mg/dL (8.5-10.1); CARBON DIOXIDE 24 mmol/L (21-32); CHLORIDE 110 mmol/L (98-107); CREATININE 1.2 mg/dL (0.6-1.3); GLUCOSE 84 mg/dL (74-106); MAGNESIUM 1.7 mg/dL (1.8-2.4); PHOSPHORUS 2.1 mg/dL (2.5-4.9); POTASSIUM 4.1 mmol/L (3.5-5.1); SODIUM SERUM 141 mmol/L (136-145); TOTAL PROTEIN, SERUM 6.3 g/dL (6.4-8.2); UREA NITROGEN, BLOOD 14 mg/dL (7-18)
[2018-07-01 07:15] LABS: CREATINE KINASE, TOTAL 25 U/L (26-192)
[2018-07-01 08:00] VITALS: BP 143/68
[2018-07-01] MEDS: CALCITONIN,SALMON,SYNTHETIC 3.7 ML SPRAY.PUMP NS SCH (08:18)
[2018-07-01] MEDS: ZINC SULFATE 220 MG CAPSULE PO SCH (08:18)
[2018-07-01] MEDS: FERROUS SULFATE (325 MG) 325 MG/TAB TABLET PO SCH (08:18)
[2018-07-01] MEDS: AMLODIPINE BESYLATE 10 MG TABLET PO SCH (08:18)
[2018-07-01] MEDS: ASPIRIN 81 MG TAB.CHEW PO SCH (08:18)
[2018-07-01] MEDS: LACTOBACILLUS RHAMNOSUS GG 1 EACH CAP.SPRINK PO SCH ×2 (08:18→16:38)
[2018-07-01] MEDS: CARVEDILOL 3.125 MG TABLET PO SCH ×2 (08:19→16:39)
[2018-07-01] MEDS: PROSOURCE / PROSTAT (PYXIS) 30 ML UDC PO SCH (08:19)
[2018-07-01] MEDS: MUPIROCIN OINT 2% 22 GM TUBE SCH (08:20)
[2018-07-01] MEDS: NYSTATIN/TRIAMCIN CREAM 15 GM TUBE TP SCH (08:21)
[2018-07-01] MEDS: DORZOLAMIDE OPTH 2% 10 ML BOTTLE EACHEYE SCH ×3 (08:21→16:38)
[2018-07-01 08:37] LABS: ALBUMIN 1.8 g/dL (3.4-5.0); TOTAL PROTEIN, SERUM 6.4 g/dL (6.4-8.2)
[2018-07-01 08:56] LABS: BILIRUBIN,TOTAL 0.2 mg/dL (0.2-1.0)
[2018-07-01] MEDS: Magnesium 1GM/D5W 100ML PREMIX 100 ML IV SCH ×2 (10:07→11:16)
[2018-07-01] MEDS ORDERED: NEUTRA PHOS 1 POWD.PACKET NG ONE (12:00)
[2018-07-01] MEDS ORDERED: LEVO500T90 PO (15:00)
[2018-07-01 16:00] VITALS: BP 157/71
--- NOTE | 2018-07-01 16:30 | NUR ---
ms rn notes report given to ESMER patel in [facility] for [facility].
[2018-07-01 16:39] VITALS: BP 157/71
--- NOTE | 2018-07-01 18:00 | NUR ---
MS RN NOTES NOTED WITH NO BOWEL MOVEMENT X5 DAYS.PT REFUSED TO TAKE LAXATIVES.EXPLAINED THE RISK AND BENEFITS X3.STILL REFUSED.PT VERBALIZED"I DONT WANT TO SOIL MY BODY AND DRESS".
--- NOTE | 2018-07-01 18:34 | NUR ---
MS SMELTER CHARGER NOTES PT IS DISCHARGED TO [facility].REPORT GIVEN TO ESMER BENNETT IN SNF.SKIN ASSESSMENT HAS DONE,PICTURE HAS TAKEN.VITAL SIGNS ARE STABLE.ALL DUE MEDS ARE GIVEN.PT IS CLEAN AND DRY.ON ROOM AIR,NO COMPLICATIONS NOTED.LEFT VIA AMBULANCE.
[2018-07-02 13:08] LABS: *SPE A/G RATIO 0.6 (0.7-1.7); *SPE ALBUMIN 2.1 g/dL (2.9-4.4); *SPE ALPHA-1-GLOBULIN 0.3 g/dL (0.0-0.4); *SPE ALPHA-2-GLOBULIN 0.7 g/dL (0.4-1.0); *SPE GLOBULIN, TOTAL 3.8 g/dL (2.2-3.9); *SPE M-SPIKE 0.5 g/dL (Not Observed); *SPEGAMMA GLOBULIN 1.9 g/dL (0.4-1.8)
== END 2018-07-01 18:33 | DRG 383 ==
LOC: ER 16:01 → MEDSG1 18:03 → TELE1 21:50 → MEDSG1 06-26 18:39 → TELE1 06-26 20:28 → MEDSG1 06-27 09:56
PROVIDERS: ADMIT Internal Medicine; ATTEND Student in an Organized Health Care Education/Training Program
DX: L03.115 Cellulitis of right lower limb (principal); N17.0 Acute kidney failure with tubular necrosis; L89.624 Pressure ulcer of left heel, stage 4; L89.894 Pressure ulcer of other site, stage 4; L89.613 Pressure ulcer of right heel, stage 3; E78.5 Hyperlipidemia, unspecified; I12.9 Hypertensive chronic kidney disease with stage 1 through stage 4 chronic kidney disease, or unspecified chronic kidney disease; N18.9 Chronic kidney disease, unspecified; D63.8 Anemia in other chronic diseases classified elsewhere; N39.0 Urinary tract infection, site not specified; L03.116 Cellulitis of left lower limb; E83.52 Hypercalcemia; L30.4 Erythema intertrigo; Z74.01 Bed confinement status; Z87.440 Personal history of urinary (tract) infections; Z87.442 Personal history of urinary calculi; H54.8 Legal blindness, as defined in USA; H40.9 Unspecified glaucoma; G89.4 Chronic pain syndrome; B96.89 Other specified bacterial agents as the cause of diseases classified elsewhere; F29 Unspecified psychosis not due to a substance or known physiological condition; E66.9 Obesity, unspecified; Z68.35 Body mass index [BMI] 35.0-35.9, adult; L22 Diaper dermatitis
CPT/HCPCS: 36415; 71045-TC; 73620-TC; 80048-TC; 80053-TC; 80061-TC; 80076-TC; 80202-TC; 81000-TC; 82550-TC; 82728-TC; 83540-TC; 83605-TC; 83735-TC; 83970; 84100-TC; 84155; 84165; 84484-TC; 85025-TC; 85730-TC; 87040-TC; 87070-TC; 87081-TC; 87086-TC; 87186-TC; 93970-TC; A6209; A6253; A6402; A6403; G0378; J0630; J0696; J2060; J2270; J2405; J2543; J2704; J3370; J3475; J3490; J7030; J7060